=== PATIENT | male | born 1945 | race Caucasian/White ===

== ENCOUNTER 2016-05-16 10:21 | Outpatient (CLI) | payer MEDICARE | END 2016-05-16 10:22 | disposition home or self-care (01) | DX: M25.50 Pain in unspecified joint (principal); M02.30 Reiter's disease, unspecified site ==

== ENCOUNTER 2016-08-09 09:20 | Outpatient (CLI) | payer MEDICARE | END 2016-08-09 09:21 | disposition home or self-care (01) | DX: M02.30 Reiter's disease, unspecified site (principal) ==

== ENCOUNTER 2017-02-02 15:52 | Outpatient (CLI) | payer MEDICARE ==
[2017-02-02 12:52] LABS: BASOPHILS % (AUTO) 0.6 %; EOSINOPHILS # (AUTO) 0.3 10^3/uL (0.0-0.7); EOSINOPHILS % (AUTO) 5.5 %; HCT - HEMATOCRIT 42.7 % (42.0-52.0); HGB - HEMOGLOBIN 14.4 g/dL (14.0-18.0); LYMPHOCYTES # (AUTO) 1.5 10^3/uL (1.5-3.5); MEAN CORPUSCULAR HEMOGLOBIN 32.4 pg (27.0-31.0); MEAN CORPUSCULAR HGB CONC 33.6 g/dL (32.0-36.0); MEAN CORPUSCULAR VOLUME 96.6 fL (80.0-94.0); MEAN PLATELET VOLUME 7.8 fL (7.4-11.4); MONOCYTES # (AUTO) 0.5 10^3/uL (0.0-1.0); MONOCYTES % (AUTO) 10.4 %; NEUTROPHILS # (AUTO) 2.9 10^3/uL (1.5-6.6); NEUTROPHILS % (AUTO) 54.5 %; RED BLOOD COUNT 4.42 10^6/uL (4.70-6.10); RED CELL DISTRIBUTION WIDTH 13.9 % (12.0-15.0); UNCORRECTED WHITE BLOOD COUNT 5.3 x10^3/uL; WHITE BLOOD COUNT 5.3 x10^3/uL (4.8-10.8)
[2017-02-02 12:59] LABS: ALBUMIN/GLOBULIN RATIO 1.1 (1.0-2.2); BUN - BLOOD UREA NITROGEN 16 mg/dL (6-20); CARBON DIOXIDE - CO2 28 mmol/L (21-32); CHLORIDE 101 mmol/L (101-111); CHOL/HDL RATIO 3.2 (<5.0); CHOLESTEROL 237 mg/dL; CREATININE 0.7 mg/dL (0.6-1.2); GFR - MDRD 111 (>89); GLUCOSE 97 mg/dL (70-100); HDL CHOLESTEROL 73 mg/dL; POTASSIUM 4.3 mmol/L (3.5-5.0); SODIUM 136 mmol/L (135-145); TOTAL PROTEIN 7.3 g/dL (6.7-8.2); TRIGLYCERIDES 105 mg/dL; VLDL CHOLESTEROL 21 mg/dL
== END 2017-02-02 15:53 | disposition home or self-care (01) ==
LOC: LAB.WCP 15:52
PROVIDERS: ATTEND Family Medicine
DX: Z00.00 Encounter for general adult medical examination without abnormal findings (principal); R70.0 Elevated erythrocyte sedimentation rate; Z12.5 Encounter for screening for malignant neoplasm of prostate; M02.30 Reiter's disease, unspecified site
CPT/HCPCS: 36415; 80053; 80061; 84153; 85025; 85651

== ENCOUNTER 2017-02-25 16:23 | Outpatient (CLI) | payer MEDICARE ==
--- NOTE | 2017-02-26 07:09 | MRI Report ---
EXAM: MRI BRAIN AND INTERNAL AUDITORY CANAL (IAC) EXAM DATE: 02/25/2017 05:30 PM. CLINICAL HISTORY: Vertigo with right-sided hearing loss. History of right-sided ear infection. COMPARISON: None. TECHNIQUE: Multiplanar, multisequence T1-weighted and fluid-sensitive MRI sequences of the brain and IACs were performed. Other: None. IV Contrast: None FINDINGS: Parenchyma/Dura: No acute parenchymal hemorrhage, mass, or midline shift. Few scattered T2/FLAIR hype rintense periventricular and deep white matter lesions within the cerebral hemispheres bilaterally. N o areas of restricted diffusion to suggest acute infarct. No abnormal areas of magnetic susceptibilit y. Brain Volume: Normal for age. Internal Auditory Canals (IACs): Normal. No cranial nerve lesion or inflammatory process identified. There is some loss of the normal T2 hyperintense signal on the high-resolution coronal T2 sequence (s eries 901) within the lateral and posterior semicircular canals bilaterally, for example on the right series 901 image 38 and on the left series 901 image 37. The cerebellopontine angles bilaterally, th e internal auditory canals bilaterally, and the cochleas bilaterally are unremarkable. Ventricles/Cisterns: The ventricles, sulci, and cisterns are unremarkable. Ventricles and sulci appea r age appropriate. No hydrocephalus. No abnormal extra-axial fluid or hemorrhage. Orbits: Status post right lens replacement surgery. The visualized orbits are otherwise unremarkable. Sella Turcica: Unremarkable. Vasculature: Visualized major intracranial flow voids appear maintained. Dural sinuses appear patent. Sinuses: Mucous retention cyst/polyp right frontal sinus. Mucous tension cysts/polyps within the maxi llary sinuses bilaterally. Moderate mucosal thickening ethmoid air cells. Mucous retention cysts/poly ps within sphenoid sinuses. Mild fluid within mastoid tips bilaterally. Bones: Normal. Other: None. IMPRESSION: 1. Some loss of the normal T2 hyperintense signal on the high-resolution coronal T2 sequence (series 901) within the lateral and posterior semicircular canals bilaterally, for example on the right serie s 901 image 38 and on the left series 901 image 37. This is nonspecific, however can be seen with ent ity such as labyrinthine ossificans. 2. No evidence of retrocochlear pathology. The cerebellopontine angles bilaterally, the internal chantal tory canals bilaterally, and the cochleas bilaterally are unremarkable. 3. Few scattered white matter T2/FLAIR hyperintensities, nonspecific, and can be seen with the entire gamut of white matter conditions, including migraine headaches and as sequela of chronic microangiop athy. This is likely of no clinical significance unless correlated with history of hypertension/diabe flaquito. It is likely unrelated to present symptomatology. 4. No acute intracranial abnormality. [facility] Referring Provider Line: [phone] SITE ID: [id number]
== END 2017-02-25 16:24 | disposition home or self-care (01) ==
LOC: DI 16:23
PROVIDERS: ATTEND Family Medicine
DX: H91.90 Unspecified hearing loss, unspecified ear (principal); R42 Dizziness and giddiness
CPT/HCPCS: 70551

== ENCOUNTER 2018-08-24 08:00 | Outpatient (CLI) | payer MEDICARE ==
[2018-08-24 13:47] LABS: BASOPHILS # (AUTO) 0.1 10^3/uL (0.0-0.1); BASOPHILS % (AUTO) 0.8 %; EOSINOPHILS # (AUTO) 0.4 10^3/uL (0.0-0.7); EOSINOPHILS % (AUTO) 6.3 %; HGB - HEMOGLOBIN 13.6 g/dL (14.0-18.0); LYMPHOCYTES % (AUTO) 33.4 %; MEAN CORPUSCULAR HEMOGLOBIN 31.6 pg (27.0-31.0); MEAN CORPUSCULAR HGB CONC 32.8 g/dL (32.0-36.0); MEAN CORPUSCULAR VOLUME 96.3 fL (80.0-94.0); MEAN PLATELET VOLUME 7.5 fL (7.4-11.4); MONOCYTES # (AUTO) 0.6 10^3/uL (0.0-1.0); MONOCYTES % (AUTO) 10.4 %; NEUTROPHILS % (AUTO) 49.1 %; PLT - PLATELET COUNT 237 10^3/uL (130-450); RED BLOOD COUNT 4.29 10^6/uL (4.70-6.10); RED CELL DISTRIBUTION WIDTH 13.1 % (12.0-15.0); WHITE BLOOD COUNT 6.1 x10^3/uL (4.8-10.8)
[2018-08-24 14:12] LABS: ALBUMIN 3.4 g/dL (3.2-5.5); ALKALINE PHOSPHATASE 33 IU/L (42-121); ALT ALANINE AMINOTRANSFERASE 18 IU/L (10-60); AST ASPARTATE AMINOTRANSFERASE 23 IU/L (10-42); BILIRUBIN,TOTAL 0.7 mg/dL (0.2-1.0); BUN - BLOOD UREA NITROGEN 19 mg/dL (6-20); CALCIUM 9.4 mg/dL (8.5-10.3); CARBON DIOXIDE - CO2 29 mmol/L (21-32); CHLORIDE 100 mmol/L (101-111); CHOL/HDL RATIO 3.2 (<5.0); CHOLESTEROL 211 mg/dL; CREATININE 0.9 mg/dL (0.6-1.2); GFR - MDRD 82 (>89); GLUCOSE 91 mg/dL (70-100); HDL CHOLESTEROL 65 mg/dL; LDL CHOLESTEROL,CALCULATED 134 mg/dL; LDL/HDL RATIO 2.1 (<3.6); SODIUM 136 mmol/L (135-145); TOTAL PROTEIN 6.9 g/dL (6.7-8.2); VLDL CHOLESTEROL 12 mg/dL
== END 2018-08-24 23:59 | disposition home or self-care (01) ==
LOC: LAB.WCP 08:00
PROVIDERS: ATTEND Nurse Practitioner
DX: Z00.00 Encounter for general adult medical examination without abnormal findings (principal); M25.50 Pain in unspecified joint; R70.0 Elevated erythrocyte sedimentation rate; M02.30 Reiter's disease, unspecified site; Z79.899 Other long term (current) drug therapy
CPT/HCPCS: 36415; 80053; 80061; 83721; 84443; 85025

== ENCOUNTER 2019-07-02 08:45 | Outpatient (CLI) | payer MEDICARE ==
[2019-07-02 12:15] LABS: BASOPHILS # (AUTO) 0.1 10^3/uL (0.0-0.1); BASOPHILS % (AUTO) 0.8 %; EOSINOPHILS # (AUTO) 0.3 10^3/uL (0.0-0.7); EOSINOPHILS % (AUTO) 5.2 %; HGB - HEMOGLOBIN 14.7 g/dL (14.0-18.0); LYMPHOCYTES # (AUTO) 1.9 10^3/uL (1.5-3.5); LYMPHOCYTES % (AUTO) 29.5 %; MEAN CORPUSCULAR HEMOGLOBIN 31.3 pg (27.0-31.0); MEAN CORPUSCULAR VOLUME 97.7 fL (80.0-94.0); MEAN PLATELET VOLUME 9.7 fL (7.4-11.4); MONOCYTES # (AUTO) 0.8 10^3/uL (0.0-1.0); MONOCYTES % (AUTO) 11.5 %; NEUTROPHILS # (AUTO) 3.4 10^3/uL (1.5-6.6); NEUTROPHILS % (AUTO) 52.8 %; PLT - PLATELET COUNT 292 10^3/uL (130-450); RED CELL DISTRIBUTION WIDTH 12.8 % (12.0-15.0); WHITE BLOOD COUNT 6.5 x10^3/uL (4.8-10.8)
[2019-07-02 12:43] LABS: ALBUMIN 3.7 g/dL (3.2-5.5); ALKALINE PHOSPHATASE 41 IU/L (42-121); ALT ALANINE AMINOTRANSFERASE 20 IU/L (10-60); AST ASPARTATE AMINOTRANSFERASE 24 IU/L (10-42); BILIRUBIN,TOTAL 0.7 mg/dL (0.2-1.0); BUN - BLOOD UREA NITROGEN 18 mg/dL (6-20); CARBON DIOXIDE - CO2 26 mmol/L (21-32); CHLORIDE 102 mmol/L (101-111); CHOL/HDL RATIO 3.6 (<5.0); CHOLESTEROL 233 mg/dL; CREATININE 0.7 mg/dL (0.6-1.2); GFR - MDRD 110 (>89); GLUCOSE 100 mg/dL (70-100); HDL CHOLESTEROL 64 mg/dL; LDL CHOLESTEROL,CALCULATED 152 mg/dL; LDL/HDL RATIO 2.4 (<3.6); SODIUM 137 mmol/L (135-145); TOTAL PROTEIN 7.4 g/dL (6.7-8.2); VLDL CHOLESTEROL 17 mg/dL
== END 2019-07-02 23:59 | disposition home or self-care (01) ==
LOC: LAB.WCP 08:45
PROVIDERS: ATTEND Family Medicine
DX: M25.50 Pain in unspecified joint (principal); Z79.899 Other long term (current) drug therapy
CPT/HCPCS: 36415; 80053; 80061; 83721; 84443; 85025; 85651

== ENCOUNTER 2019-07-12 09:31 | Outpatient (CLI) | payer MEDICARE ==
--- NOTE | 2019-07-12 13:42 | XRAY Report ---
Reason: ASTHMATIC BRONCHITIS ACUTE Procedure Date: 07/12/2019 Accession Number: [id number] / [id number] Procedure: WCP - Chest 2 View X-Ray CPT Code: 46824 Final Report FULL RESULT: EXAM: CHEST RADIOGRAPHY EXAM DATE: 07/12/2019 09:52 AM. CLINICAL HISTORY: Asthmatic bronchitis acute. COMPARISON: CHEST 2 VIEW PA/LAT 08/12/2015 1:58 PM. TECHNIQUE: 2 views. FINDINGS: Lungs/Pleura: Mild pulmonary hyperinflation again demonstrated. Finding suspicious for a focal opacity at the lung base just posterior to the heart, without a definite correlate on the frontal view. No other focal opacities. No pleural effusion. No pneumothorax. Mediastinum: Heart and mediastinal contours are unremarkable. Other: None. IMPRESSION: Possible focal basilar pulmonary opacity, as above. Follow-up radiographs could be obtained depending upon the clinical setting and course. [facility]
== END 2019-07-12 23:59 | disposition home or self-care (01) ==
LOC: DI.WCP 09:31
PROVIDERS: ATTEND Family Medicine
DX: J45.909 Unspecified asthma, uncomplicated (principal)
CPT/HCPCS: 71046

== ENCOUNTER 2019-07-26 15:20 | Outpatient (CLI) | payer MEDICARE ==
--- NOTE | 2019-07-26 17:15 | Ultrasound Report ---
Reason: THROMBOPHLEBITIS Procedure Date: 07/26/2019 Accession Number: [id number] / [id number] Procedure: US - Duplex Ext Veins Right CPT Code: Addended Final Report FULL RESULT: EXAM: RIGHT LOWER EXTREMITY VENOUS ULTRASOUND EXAM DATE: 07/26/2019 04:42 PM. CLINICAL HISTORY: Thrombophlebitis. COMPARISON: None. TECHNIQUE: Real-time sonographic vascular imaging was performed by the nurse emergency through the lower extremity utilizing both color-flow and Doppler spectral analysis. Multiple pharmacy sales representative static images were saved for review. FINDINGS: Common Femoral Vein (CFV): Nonocclusive thrombus. Profunda Femoral Vein (PFV): Normal. Femoral Vein (FV) Prox: Nonocclusive thrombus. Femoral Vein (FV) Mid: Occlusive thrombus. Femoral Vein (FV) Dist: Occlusive thrombus. Popliteal Vein: Occlusive thrombus. Posterior Tibial Veins: Occlusive thrombus. Peroneal Veins: Occlusive thrombus. Contralateral Side CFV: Normal. Other: None. IMPRESSION: Deep vein thrombosis throughout the entire right lower extremity. [facility] The critical result notification system was initiated by Dr. Davidson King at 05:10 PM on 07/26/2019. ADDENDUM: 07/26/2019 17:34 The above critical result findings were discussed with Dr. Michele by Dr. Davidson King at 05:34 PM on 07/26/2019.
== END 2019-07-26 15:21 | disposition home or self-care (01) ==
LOC: DI 15:20
PROVIDERS: ATTEND Family Medicine
DX: I82.401 Acute embolism and thrombosis of unspecified deep veins of right lower extremity (principal)

== ENCOUNTER 2019-08-08 08:41 | Outpatient (CLI) | payer MEDICARE ==
--- NOTE | 2019-08-08 09:00 | XRAY Report ---
Reason: PULMONARY INFILTRATE Procedure Date: 08/08/2019 Accession Number: [id number] / [id number] Procedure: WCP - Chest 2 View X-Ray CPT Code: 40609 Final Report FULL RESULT: EXAM: CHEST RADIOGRAPHY EXAM DATE: 08/08/2019 08:41 AM. CLINICAL HISTORY: PULMONARY INFILTRATE. COMPARISON: CHEST 2 VIEW 07/12/2019 9:27 AM. TECHNIQUE: 2 views. FINDINGS: Lungs/Pleura: Bilateral view, improved opacity just posterior to the heart with minimal residual opacity. On the frontal view this may correspond to minimal left retrocardiac opacity, atelectasis versus infiltrate. Mediastinum: Heart and mediastinal contours are unremarkable. Other: None. IMPRESSION: Decreased minimal left basal opacity, atelectasis or infiltrate. [facility]
== END 2019-08-08 23:59 | disposition home or self-care (01) ==
LOC: DI.WCP 08:41
PROVIDERS: ATTEND Family Medicine
DX: R91.8 Other nonspecific abnormal finding of lung field (principal)
CPT/HCPCS: 71046

== ENCOUNTER 2019-10-30 07:32 | Outpatient (CLI) | payer MEDICARE ==
[2019-10-30 12:18] LABS: BASOPHILS # (AUTO) 0.1 10^3/uL (0.0-0.1); BASOPHILS % (AUTO) 1.1 %; EOSINOPHILS # (AUTO) 0.4 10^3/uL (0.0-0.7); EOSINOPHILS % (AUTO) 7.9 %; HGB - HEMOGLOBIN 13.1 g/dL (14.0-18.0); LYMPHOCYTES # (AUTO) 1.5 10^3/uL (1.5-3.5); LYMPHOCYTES % (AUTO) 26.8 %; MEAN CORPUSCULAR HEMOGLOBIN 30.9 pg (27.0-31.0); MEAN CORPUSCULAR HGB CONC 31.7 g/dL (32.0-36.0); MEAN CORPUSCULAR VOLUME 97.4 fL (80.0-94.0); MEAN PLATELET VOLUME 9.5 fL (7.4-11.4); MONOCYTES # (AUTO) 0.7 10^3/uL (0.0-1.0); MONOCYTES % (AUTO) 11.6 %; NEUTROPHILS # (AUTO) 2.9 10^3/uL (1.5-6.6); NEUTROPHILS % (AUTO) 52.4 %; PLT - PLATELET COUNT 256 10^3/uL (130-450); RED BLOOD COUNT 4.24 10^6/uL (4.70-6.10); RED CELL DISTRIBUTION WIDTH 13.2 % (12.0-15.0); WHITE BLOOD COUNT 5.6 x10^3/uL (4.8-10.8)
[2019-10-30 13:05] LABS: ALBUMIN 3.4 g/dL (3.2-5.5); ALKALINE PHOSPHATASE 42 IU/L (42-121); ALT ALANINE AMINOTRANSFERASE 20 IU/L (10-60); AST ASPARTATE AMINOTRANSFERASE 26 IU/L (10-42); BILIRUBIN,TOTAL 0.8 mg/dL (0.2-1.0); BUN - BLOOD UREA NITROGEN 21 mg/dL (6-20); CALCIUM 9.2 mg/dL (8.5-10.3); CARBON DIOXIDE - CO2 27 mmol/L (21-32); CHLORIDE 102 mmol/L (101-111); CHOL/HDL RATIO 2.6 (<5.0); CHOLESTEROL 168 mg/dL; CREATININE 0.8 mg/dL (0.6-1.2); GLUCOSE 94 mg/dL (70-100); HDL CHOLESTEROL 64 mg/dL; LDL CHOLESTEROL,CALCULATED 90 mg/dL; LDL/HDL RATIO 1.4 (<3.6); SODIUM 136 mmol/L (135-145); TOTAL PROTEIN 6.8 g/dL (6.7-8.2); VLDL CHOLESTEROL 14 mg/dL
== END 2019-10-30 23:59 | disposition home or self-care (01) ==
LOC: LAB.WCP 07:32
PROVIDERS: ATTEND Family Medicine
DX: Z79.899 Other long term (current) drug therapy (principal); E78.5 Hyperlipidemia, unspecified
CPT/HCPCS: 36415; 80053; 80061; 83721; 84443; 85025

== ENCOUNTER 2020-02-01 14:26 | Outpatient (CLI) | payer MEDICARE ==
--- NOTE | 2020-02-01 18:32 | Ultrasound Report ---
PROCEDURE: Duplex Ext Veins Right INDICATIONS: ACUTE DEEP VENOUS THROMBOSIS OF RT LEG TECHNIQUE: Real-time imaging, as well as color and pulse Doppler interrogation, were performed of the lower extr emity deep veins from the inguinal ligament to the popliteal fossa. COMPARISON: 07/26/2019 FINDINGS: Extensive right sided deep venous thrombosis is seen. There is nonocclusive thrombus seen within the mid femoral vein with an adjacent collateral vein seen. There is occlusive thrombus seen w ithin the distal femoral vein through the popliteal vein and including the posterior tibial vein and the peroneal vein. IMPRESSION: Extensive right lower extremity deep venous thrombosis can be seen. This is somewhat imp roved compared to the 07/26/2019 examination. Reviewed by: Tae Buchanan MD on 02/01/2020 5:31 PM [facility] Approved by: Tae Buchanan MD on 02/01/2020 5:31 PM [facility] Station ID: [id number]
== END 2020-02-01 14:27 | disposition home or self-care (01) ==
LOC: DI 14:26
PROVIDERS: ATTEND Family Medicine
DX: I82.411 Acute embolism and thrombosis of right femoral vein (principal); I82.431 Acute embolism and thrombosis of right popliteal vein; I82.451 Acute embolism and thrombosis of right peroneal vein; I82.441 Acute embolism and thrombosis of right tibial vein

== ENCOUNTER 2020-07-25 16:30 | Outpatient (CLI) | payer MEDICARE ==
--- NOTE | 2020-07-25 18:28 | Ultrasound Report ---
PROCEDURE: Duplex Ext Veins Right INDICATIONS: CHRONIC DVT OF RT LEG TECHNIQUE: Real-time imaging, as well as color and pulse Doppler interrogation, were performed of the lower extr emity deep veins from the inguinal ligament to the popliteal fossa. COMPARISON: Right lower extremity duplex ultrasound 02/01/2020. FINDINGS: Nonocclusive thrombus in the proximal SFV. Occlusive thrombus in the mid to distal SFV and popliteal veins. Collateral veins in the thigh. Catheter veins are patent but with slow flow. IMPRESSION: Chronic right lower extremity DVT. Collateral vein in the thigh. Persistent occlusive thrombus in the mid femoral vein to popliteal vein. Nonocclusive thrombus in the proximal femoral vein. There is resolved thrombus in the calf veins compared to January 2020. Reviewed by: Lucas Bejarano MD on 07/25/2020 5:27 PM [facility] Approved by: Lucas Bejarano MD on 07/25/2020 5:27 PM [facility] Station ID: [id number]
== END 2020-07-25 16:31 | disposition home or self-care (01) ==
LOC: DI 16:30
PROVIDERS: ATTEND Nurse Practitioner
DX: I82.511 Chronic embolism and thrombosis of right femoral vein (principal); I82.531 Chronic embolism and thrombosis of right popliteal vein

== ENCOUNTER 2020-08-12 07:00 | Outpatient (CLI) | payer MEDICARE ==
[2020-08-12 18:24] LABS: BASOPHILS # (AUTO) 0.1 10^3/uL (0.0-0.1); BASOPHILS % (AUTO) 0.7 %; EOSINOPHILS # (AUTO) 0.5 10^3/uL (0.0-0.7); HCT - HEMATOCRIT 44.4 % (42.0-52.0); HGB - HEMOGLOBIN 14.4 g/dL (14.0-18.0); LYMPHOCYTES # (AUTO) 1.7 10^3/uL (1.5-3.5); LYMPHOCYTES % (AUTO) 24.4 %; MEAN CORPUSCULAR HEMOGLOBIN 31.9 pg (27.0-31.0); MEAN CORPUSCULAR HGB CONC 32.4 g/dL (32.0-36.0); MEAN CORPUSCULAR VOLUME 98.2 fL (80.0-94.0); MEAN PLATELET VOLUME 9.2 fL (7.4-11.4); MONOCYTES # (AUTO) 0.9 10^3/uL (0.0-1.0); NEUTROPHILS # (AUTO) 3.9 10^3/uL (1.5-6.6); NEUTROPHILS % (AUTO) 54.8 %; PLT - PLATELET COUNT 299 10^3/uL (130-450); RED BLOOD COUNT 4.52 10^6/uL (4.70-6.10); WHITE BLOOD COUNT 7.1 x10^3/uL (4.8-10.8)
[2020-08-12 18:44] LABS: ALBUMIN 3.9 g/dL (3.2-5.5); ALBUMIN/GLOBULIN RATIO 1.2 (1.0-2.2); ALKALINE PHOSPHATASE 49 IU/L (42-121); ALT ALANINE AMINOTRANSFERASE 23 IU/L (10-60); AST ASPARTATE AMINOTRANSFERASE 27 IU/L (10-42); BILIRUBIN,TOTAL 0.8 mg/dL (0.2-1.0); BUN - BLOOD UREA NITROGEN 17 mg/dL (6-20); CALCIUM 9.5 mg/dL (8.5-10.3); CARBON DIOXIDE - CO2 26 mmol/L (21-32); CHLORIDE 98 mmol/L (101-111); CHOL/HDL RATIO 2.5 (<5.0); CHOLESTEROL 174 mg/dL; CREATININE 0.8 mg/dL (0.6-1.2); GFR - MDRD 94 (>89); GLUCOSE 90 mg/dL (70-100); HDL CHOLESTEROL 69 mg/dL; LDL CHOLESTEROL,CALCULATED 89 mg/dL; LDL/HDL RATIO 1.3 (<3.6); POTASSIUM 4.2 mmol/L (3.5-5.0); SODIUM 135 mmol/L (135-145); TOTAL PROTEIN 7.1 g/dL (6.7-8.2); TRIGLYCERIDES 79 mg/dL; URIC ACID 4.6 mg/dL (2.6-7.2); VLDL CHOLESTEROL 16 mg/dL
[2020-08-12 18:45] LABS: CRP - C-REACTIVE PROTEIN < 1.0 mg/dL (0-1.0)
[2020-08-12 18:50] LABS: THYROID STIMULATING HORMONE 3.78 uIU/mL (0.34-5.60)
[2020-08-12 19:07] LABS: RHEUMATOID FACTOR NEGATIVE (Negative)
[2020-08-14 11:31] LABS: ANA SCREEN NEGATIVE (NEGATIVE)
== END 2020-08-12 23:59 | disposition home or self-care (01) ==
LOC: LAB.WCP 07:00
PROVIDERS: ATTEND Family Medicine
DX: E78.5 Hyperlipidemia, unspecified (principal); I82.501 Chronic embolism and thrombosis of unspecified deep veins of right lower extremity
CPT/HCPCS: 36415; 80053; 80061; 83721; 84443; 84550; 85025; 85651; 86038; 86140; 86430

== ENCOUNTER 2021-03-22 08:13 | Day surgery (SDC) | payer MEDICARE ==
[2021-03-22 09:05] VITALS: BP 125/98
== END 2021-03-22 08:14 | disposition home or self-care (01) ==
LOC: SDS 08:13
PROVIDERS: ATTEND Surgery
DX: K40.90 Unilateral inguinal hernia, without obstruction or gangrene, not specified as recurrent (principal); I48.91 Unspecified atrial fibrillation; Z53.09 Procedure and treatment not carried out because of other contraindication
CPT/HCPCS: 93005; 93306

== ENCOUNTER 2021-04-22 12:18 | Outpatient (CLI) | payer MEDICARE ==
[2021-04-22] MEDS ORDERED: REGADENOSON 0.4 MG/5 ML SYRINGE IVP ONE (13:38)
--- NOTE | 2021-04-22 14:40 | CARDIAC PROCEDURE NOTE ---
Stress Test Report Service Date: 04/22/21 Service Time: 12:30 Ordering Provider: Megan Horowitz ARNP Indication for Test: Risk stratification for occult CAD in patient who is pre-op for hernia surgery, recently discovered to have asymptomatic atrial fibrillation of unkown duration. Significant Medical History: Juan was diagnosed with an inguinal hernia about 1 year ago, which was initially only minimally symptomatic but in recent months has become more problematic to him. As part of an evaluation for potential preoperative planning he was found to have atrial fibrillation by EKG. Diagnostic echocardiogram performed at [facility] on 03/22/2021 was notable for normal right and left ventricular size and systolic function, with mild mitral regurgitation and moderate biatrial dilation. He was initiated on anticoagulation with Xarelto. To further risk stratify him for herniorrhaphy in this setting he is referred for an ischemia evaluation with stress myocardial perfusion imaging. We discussed the options of chemical stress with regadenason versus treadmill stress and since there does not appear to be a contraindication to proceeding with exercise this stress modality was chosen. Juan reports that he remains unaware of any cardiovascular symptoms and his exertional tolerance remains intact; he walks avidly, up and down hills and periodically fells trees on his property and chops them to firewood, without limitation. Cardiac Risk Factors: Positive for hyperlipidemia (not currently treated) and probable ASCVD in a brother; no known history of diabetes, hypertension and only a remote (>40 yrs ago) and brief smoking history. Type of Stress Test: ETT with Myocardial Perfusion Imaging Procedure: -Exercise Treadmill Test- After signing informed consent, the patient underwent resting 99Tc-Myoview SPECT imaging and then performed treadmill exercise using a Phil protocol. The patient exercised for 6 minutes 45 seconds and achieved a peak heart rate of 190 (132 percent predicted maximum heart rate for age), and an estimated workload of 8.2 METS. The test was terminated due to fatigue/shortness of breath after achieving target heart rate. Resting heart rate: 65 Peak heart rate: 190 Abnormal, accelerated HR increase with exercise, likely due to atrial fibrillation in the absence of AV nadine blocking agent. Resting BP: 120/86 Peak BP: 183/84 Normal resting BP and response to exercise. Rhythm during exercise: Atrial fibrillation throughout, with occasional isolated PVCs and brief, rare episodes of bigeminy. Symptoms: No specific symptoms described. EKG at rest showed atrial fibrillation with borderline prolonged QTc (476 ms); no QRS/ST/T morphologic abnormalities. EKG at peak stress showed J-point depression with upsloping ST segments, NOT meeting diagnostic criteria for ischemia. In Recovery heart rate rapidly returned to baseline, with slower decrease in BPs. Nuclear imaging was performed at rest and with stress and will be reported separately. Dannie Thompson MD, was present throughout this treadmill stress study and supervised it in its entirety. Summary: 1) Slightly above average exercise tolerance as evidenced by LEXIE of -12%. 2) Abnormal resting EKG. 3) Adequate level of exercise was achieved on this treadmill stress test. 4) Normal BP response to exercise. Accelerated heart rate increase with exercise, in setting of no AV nadine blockade. 5) No ischemic changes by EKG criteria were seen at peak stress. 6) Analysis of gated nuclear images reveals normal left ventricular size and systolic function; SPECT analysis reveals normal perfusion of the left ventricle at rest and in prone images obtained following treadmill stress, thus no clear evidence of prior infarct or inducible ischemia. See separate report for more detail. CONCLUSIONS: 1) Low risk treadmill stress myocardial perfusion imaging study, without symptoms, EKG or SPECT evidence of inducible ischemia. 2) Patient's atrial fibrillation is appropriately treated with a DOAC (Xarelto) but due to rapid and exaggerated HR increase with exercise, initiation of AV nadine blocking agent (beta or calcium channel jonathan) is recommended for improved rate control.
--- NOTE | 2021-04-22 17:11 | Nuclear Medicine Report ---
PROCEDURE: Rest and pharmacological stress myocardial perfusion SPECT with gated imaging and ejection fraction INDICATIONS: AFIB /LEXISCAN RADIOPHARMACEUTICAL: 13.0 mCi Tc-99m Myoview IV at rest and 36.0 mCi Tc-99m Myoview IV at peak stres s. [id number] was performed. TECHNIQUE: Radiopharmaceutical was injected at peak stress test, and also at rest. SPECT images wer e obtained. SPECT myocardial perfusion images were displayed in short axis, horizontal long axis, an d vertical long axis views. Gated images were reviewed using AutoQUANT software. COMPARISON: None available. FINDINGS: Raw data: There is good myocardial labeling by radiotracer. No significant motion artifacts. Lung- to-heart ratio is 0.35 (normal is less than 0.46 for tetrafosmin tracer). Left ventricle function: Gated images demonstrate normal left ventricle wall thickening. No segment al wall motion abnormality. No transient ischemic dilation; TID is 0.95 (normal less than 1.30). Th e left ventricle resting end-diastolic volume is 87 mL. Left ventricle stress ejection fraction is 6 4%; normal values are above 45%. Myocardial perfusion: There is a large, moderately severe, fixed perfusion defect in the inferior la teral wall and apex, which is largely resolved on prone imaging, most likely caused by attenuation ar tifact. There is no reversible perfusion defect to suggest myocardial ischemia. IMPRESSION: 1. Probably normal myocardial perfusion images. There is a large, moderately severe, fixed perfusion defect in the inferior lateral wall and apex, which is largely resolved on prone imaging, suggesting attenuation artifact. 2. There is no reversible perfusion defect to suggest myocardial ischemia.. 3. Normal left ventricular volume and systolic function. 4. Please correlate with stress EKG result. PQRS ATTESTATIONS: Measure 322 - Is this imaging test primarily performed on a low-risk surgery patient for preoperative evaluation within 30 days preceding their low-risk non-cardiac surgery? Low-risk surgery is defined as cardiac or myocardial infarction less than 1%, including (but not limited to) endoscopic pr ocedures, superficial procedures, cataract surgery, and excisional breast surgery: Answer: No Measure 323 - Is this imaging test performed primarily for the monitoring of an asymptomatic patient who had percutaneous coronary intervention on the visit date or within 2 years of the visit date? An swer: No Measure 324 - Is this imaging test performed primarily for the initial detection and risk assessment on an asymptomatic, low coronary heart disease patient? Low CHD risk definition = clinicians should consider the maximum number of available patient factors used to estimate risk based on [place] (A TP III criteria), typically age, gender, diabetes, smoking status, and use of blood pressure medicati on, and integrate age appropriate estimates for missing elements, such as LDL or standard blood press ure. Answer: No Reviewed by: Bailee Miramontes MD on 04/22/2021 5:09 PM PST Approved by: Bailee Miramontes MD on 04/22/2021 5:09 PM PST Station ID: [id number]
== END 2021-04-22 12:19 | disposition home or self-care (01) ==
LOC: DI 12:18
PROVIDERS: ATTEND Nurse Practitioner
DX: I48.0 Paroxysmal atrial fibrillation (principal); E78.5 Hyperlipidemia, unspecified; Z87.891 Personal history of nicotine dependence
CPT/HCPCS: 78452; 93016; 93017; 93018; A9500

== ENCOUNTER 2021-08-06 06:24 | Day surgery (SDC) | payer MEDICARE ==
[2021-08-06] MEDS ORDERED: LACTATED RINGERS 1,000 ML IV ONE (06:33)
[2021-08-06] MEDS ORDERED: CEFAZOLIN SODIUM IN 0.9 % NACL 2 GM/50 ML BAG IV ONE (06:38)
--- NOTE | 2021-08-06 07:08 | ANESTHESIA ---
Pre-Anesthesia VS, & Labs - Diagnosis left inguinal hernia repair - Procedure left inguinal hernia repair with mesh Vital Signs: Temp Pulse Resp BP Pulse Ox 36.7 C 52 L 15 138/88 H 98 08/06/21 06:44 08/06/21 06:44 08/06/21 06:44 08/06/21 06:44 08/06/21 06:44 Height: 5 ft 8 in Weight (kg): 78 kg Body Mass Index: 26.1 BMI Classification: Overweight - NPO >8 hours Home Medications and Allergies Home Medications: Ambulatory Orders Rivaroxaban [Xarelto] 20 mg PO DAILY 07/27/21 Rivaroxaban [Xarelto] 20 mg PO DAILY 07/27/21 Allergies/Adverse Reactions: Allergies Allergy/AdvReac Type Severity Reaction Status Date / Time sulindac [From Clinoril] Allergy Severe Hives Verified 12/03/13 12:40 cyclobenzaprine HCl * AdvReac Hallucinati Verified 03/10/21 15:33 [From Flexeril] ons Anes History & Medical History - Anesthetic History Anesthesia Complications: reports: No previous complications - Medical History Cardiovascular: reports: Deep vein thrombosis, Atrial fibrillation Pulmonary: reports: None Gastrointestinal: reports: None Urinary: reports: None Neuro: reports: None Musculoskeletal: reports: Osteoarthritis, Other (polyarthritis, riter syndrome) Endocrine/Autoimmune: reports: None Blood Disorders: reports: None Skin: reports: None Smoking Status: Former smoker (Quit 40 years ago.) Psychosocial: reports: No issues indicated History of Cancer?: No - Surgical History General: reports: Other (IHR) Eyes Ears Nose Throat (EENT): reports: Cataracts, Tonsil/Adenoidectomy Exam General: Alert, Oriented x3, Cooperative, No acute distress Dental: Poor dentition (chipped and missing) Mouth Openin Fingerbreadth Neck Mobility: Normal Mallampati classification: II Thyromental Distance: 4-6 cm Respiratory: Lungs clear, Normal breath sounds, No respiratory distress, No accessory muscle use Cardiovascular: Other (afib) Mental/Cognitive Status: Alert/Oriented X3, Normal for patient Plan Anesthesia Type: General Consent for Procedure(s) Verified and Reviewed: Yes Code Status: Attempt Resuscitation ASA classification: 3-Severe systemic disease Is this case an emergency?: No
[2021-08-06] MEDS ORDERED: LIDOCAINE-MPF 2% 5 ML VIAL ONE (07:33)
[2021-08-06] MEDS ORDERED: PROPOFOL 200 MG/20 ML VIAL IVP ONE (07:33)
[2021-08-06] MEDS ORDERED: fentaNYL 100 MCG/2 ML VIAL ONE (07:33)
[2021-08-06] MEDS ORDERED: BUPIVACAINE 0.25% PF 10 ML VIAL ONE ×2 (07:35→07:36)
[2021-08-06] MEDS ORDERED: LIDOCAINE 2%-EPI 1:100000 20 ML MDV ONE (07:36)
[2021-08-06] MEDS ORDERED: DEXAMETHASONE 4 MG/ML VIAL ONE (08:28)
[2021-08-06] MEDS ORDERED: ePHEDrine 50 MG/ML VIAL IVP ONE (08:28)
[2021-08-06] MEDS ORDERED: ONDANSETRON 4 MG/2 ML VIAL ONE (08:28)
[2021-08-06] MEDS ORDERED: BUPIVACAINE 0.25% PF 10 ML VIAL SUBQ ONE (08:33)
[2021-08-06] MEDS ORDERED: ONDANSETRON 4 MG/2 ML VIAL IVP PRN (09:20)
[2021-08-06] MEDS ORDERED: HYDROmorphone 0.5 MG/0.5 ML SYRINGE IVP PRN (09:20)
[2021-08-06] MEDS ORDERED: fentaNYL 100 MCG/2 ML VIAL IVP PRN (09:20)
[2021-08-06] MEDS ORDERED: ATROPINE ABBOJECT 1 MG/10 ML SYRINGE IVP PRN (09:20)
[2021-08-06] MEDS ORDERED: NALOXONE 0.4 MG/ML VIAL IVP PRN (09:20)
[2021-08-06] MEDS ORDERED: MORPHINE 2 MG/ML CARPUJECT IVP PRN (09:20)
[2021-08-06] MEDS ORDERED: LACTATED RINGERS 900 ML IV ONE (09:37)
--- NOTE | 2021-08-06 09:52 | OPERATIVE REPORT ---
Operative Report - General Procedure Date: 08/06/21 Planned Procedure: Left inguinal herniorrhaphy Pre-Op Diagnosis: Left inguinal hernia Procedure Performed: Left direct inguinal herniorrhaphy with mesh and excision cord lipoma Post Op Diagnosis: Left direct inguinal hernia and cord lipoma - Procedure Note Primary Surgeon: Keanu Grimm MD Anesthesia Provider: Winsome Maldonado CRNA Anesthesia Technique: General LMA, Local (20 mL 0.25% Marcaine) IV Fluids (mL): 1,100 Estimated Blood Loss (mL): 5 Drain/Tube Type: Other (None.) Indications: As above. Findings: Large direct inguinal hernia. Complications: None. - Other Other Information/Narrative: After verbal and written informed consent was obtained detailing the operation, the alternatives the operation including no operation, risks of infection, bleeding requiring transfusion with its risks, nerve injury, and and after I met with the patient confirming the surgery and the site of surgery, the patient was brought to the operative suite and placed supine on the operating table. Great care was taken to avoid pressure points to prevent pressure necrosis or nerve injury. Monitoring devices were applied along with TEDs and pneumatic compression stockings (to prevent DVT). The patient received preoperative antibiotics for surgical prophylaxis. Winsome Maldonado CRNA sedated and anesthetized the patient for the entire procedure. The patient was prepped and draped in the usual sterile manner. With the patient draped my initials were clearly visible. A "time in" then confirmed that the patient was identified with 3 identifiers (name, date, and medical record number), the history and physical was updated and in the chart, the signed consent confirming the procedure was in the chart, the patient was in the correct position, the aforementioned prophylactic measures were in place or given, we had the correct personnel and equipment to complete the procedure and that anesthesia and the surgical team were given an opportunity to express any concerns. With the agreement of everyone in the room we proceeded with the operation. After the inguinal area was injected with half percent Marcaine, anesthetizing the area, a standard inguinal incision was made and dissection was carried down to the external oblique aponeurosis using a combination of Metzenbaum scissors and Bovie electrocautery. The external oblique aponeurosis was cleared of overlying adherent tissue, and the external ring was delineated. The external oblique was incised with a scalpel and this incision was carried down to the external ring using Metzenbaum scissors. Care was taken not to injure the ilioinguinal nerve. Having expose the inguinal canal, the cord structures were from the canal using blunt dissection and a Quinn drain was placed around the cord structures at the level of the pubic tubercle. This [place] drain was then used to retract the cord structures as needed. Adherent cremasteric muscle was dissected free from the cord using Bovie electrocautery. The cord was then explored using a combination of sharp and blunt dissection, and no sac was found. Dissection along the cord structures found a lipoma that was dissected back to the internal ring, and transected, and the stump cauterized. The hernia was found coming from the floor the inguinal canal medial to the inferior epigastric vessels. This was dissected back to the hernia opening. The hernia was inverted back into the abdominal cavity and a PerFix plug inserted into the hernia defect. The plug was secured to the edge of the hernia defect using interrupted 2-0 PDS sutures. This permitted the floor of the inguinal canal to be repaired without the hernia in my way. The Pe rFix onlay patch was then secured to the pubic tubercle with 2 0-PDS U stitches. The superior stitch was then run attaching the mesh to the conjoined tendon whereas the inferior stitch was run attaching the mesh to the shelving edge of Poupart's ligament. The mesh was secured around the cord structures loosely thus creating a new internal ring. The [place] drain was then removed. The wound was irrigated using sterile saline, and hemostasis was obtained using Bovie electrocautery. The incision the external oblique was approximated using 3-0 Vicryl in a running fashion thus reforming the external ring. The skin incision was approximated with 4-0 Monocryl in a subcuticular fashion. The skin was cleaned of its prep and Dermabond was applied. At this point a timeout was performed that confirmed that all counts were correct x2, the procedure that was performed, the blood loss, the IV fluids administered, the patient's condition, and any concerns of the operating team had. Having ángel erated the procedure well, the patient was taken recovery room in good and stable condition. Gentle downward traction ensured the testes were well seated in the scrotum. The plan is for outpatient discharge when the patient is adequately recovered. This document was created in part using voice recognition technology. Because of the inherent limitations of the system, occasional same sounding word substitutions and grammatical errors do occur and persist despite proofreading. Please read this document for content.
[2021-08-06] MEDS ORDERED: LACTATED RINGERS 1,000 ML IV SCH (10:00)
[2021-08-06] MEDS ORDERED: HYDROcod/ACETAM 5/325 MG TABLET PO PRN (10:48)
[2021-08-06 10:56] VITALS: BP 138/97
--- NOTE | 2021-08-06 11:03 | ANESTHESIA POST OP EVALUATION ---
Anesthesia Post Eval - Post Anesthesia Eval Vitals: Last Vital Signs Temp 36.5 C 08/06/21 10:54 Pulse 69 08/06/21 10:54 Resp 16 08/06/21 10:54 BP 138/97 H 08/06/21 10:54 Pulse Ox 100 08/06/21 10:54 CV Function Including HR & BP: Stable Pain Control: Satisfactory Nausea & Vomiting: Negative Mental Status: Baseline Respiratory Status: Airway Patent Hydration Status: Satisfactory Anesthesia Complications: None
== END 2021-08-06 06:25 | disposition home or self-care (01) ==
LOC: SDS 06:24
PROVIDERS: ATTEND Surgery
DX: K40.90 Unilateral inguinal hernia, without obstruction or gangrene, not specified as recurrent (principal); D17.6 Benign lipomatous neoplasm of spermatic cord; J45.909 Unspecified asthma, uncomplicated; G47.30 Sleep apnea, unspecified; I48.91 Unspecified atrial fibrillation; Z79.01 Long term (current) use of anticoagulants; Z79.82 Long term (current) use of aspirin; Z87.891 Personal history of nicotine dependence
CPT/HCPCS: 49505; 55520; A9270; C1781; J0690; J7120

== ENCOUNTER 2021-12-06 08:00 | Outpatient (CLI) | payer MEDICARE ==
--- NOTE | 2021-12-06 15:02 | XRAY Report ---
PROCEDURE: Elbow 3 View LT INDICATIONS: ELBOW PX TECHNIQUE: 3 views of the elbow were acquired. COMPARISON: None FINDINGS: Bones: The olecranon is obscured by overlying ossification. No suspicious bony lesions. Soft tissues: No elbow joint effusion. Large area of ossification at the posterior aspect of the ole cranon is present measuring roughly 43 mm. There is a rounded soft tissue mass at the posterior aspec t of the olecranon measuring roughly 60 mm. IMPRESSION: Large region of ossification and soft tissue mass overlying the olecranon. Findings may represent ole cranon bursitis with associated dystrophic calcification. MRI is recommended for further assessment, and to exclude less likely, more aggressive etiologies. Reviewed by: Cheryl Vicente MD on 12/06/2021 3:00 PM PDT Approved by: Cheryl Vicente MD on 12/06/2021 3:00 PM PDT Station ID: [id number]
== END 2021-12-06 23:59 | disposition home or self-care (01) ==
LOC: DI.WOS 08:00
PROVIDERS: ATTEND Orthopaedic Surgery
DX: R22.32 Localized swelling, mass and lump, left upper limb (principal); M25.522 Pain in left elbow

== ENCOUNTER 2022-12-28 08:18 | Outpatient (CLI) | payer MEDICARE ==
[2022-12-28 12:34] LABS: BASOPHILS # (AUTO) 0.1 10^3/uL (0.0-0.1); BASOPHILS % (AUTO) 0.9 %; EOSINOPHILS # (AUTO) 0.3 10^3/uL (0.0-0.7); EOSINOPHILS % (AUTO) 5.7 %; HCT - HEMATOCRIT 41.4 % (42.0-52.0); HGB - HEMOGLOBIN 13.4 g/dL (14.0-18.0); LYMPHOCYTES # (AUTO) 1.6 10^3/uL (1.5-3.5); LYMPHOCYTES % (AUTO) 28.4 %; MEAN CORPUSCULAR HEMOGLOBIN 31.6 pg (27.0-31.0); MEAN CORPUSCULAR HGB CONC 32.4 g/dL (32.0-36.0); MEAN CORPUSCULAR VOLUME 97.6 fL (80.0-94.0); MEAN PLATELET VOLUME 9.3 fL (7.4-11.4); MONOCYTES # (AUTO) 0.8 10^3/uL (0.0-1.0); MONOCYTES % (AUTO) 13.4 %; NEUTROPHILS # (AUTO) 2.9 10^3/uL (1.5-6.6); NEUTROPHILS % (AUTO) 51.4 %; PLT - PLATELET COUNT 246 10^3/uL (130-450); RED BLOOD COUNT 4.24 10^6/uL (4.70-6.10); RED CELL DISTRIBUTION WIDTH 13.1 % (12.0-15.0); WHITE BLOOD COUNT 5.6 x10^3/uL (4.8-10.8)
[2022-12-28 12:58] LABS: ALBUMIN 3.8 g/dL (3.2-5.5); ALBUMIN/GLOBULIN RATIO 1.3 (1.0-2.2); ALKALINE PHOSPHATASE 45 IU/L (42-121); ALT ALANINE AMINOTRANSFERASE 14 IU/L (10-60); AST ASPARTATE AMINOTRANSFERASE 21 IU/L (10-42); BILIRUBIN,TOTAL 0.7 mg/dL (0.2-1.0); BUN - BLOOD UREA NITROGEN 14 mg/dL (6-20); CALCIUM 8.9 mg/dL (8.5-10.3); CARBON DIOXIDE - CO2 29 mmol/L (21-32); CHLORIDE 103 mmol/L (101-111); CHOL/HDL RATIO 2.8 (<5.0); CHOLESTEROL 189 mg/dL; CREATININE 0.8 mg/dL (0.6-1.3); GFR - MDRD 93 (>89); GLUCOSE 87 mg/dL (74-104); HDL CHOLESTEROL 68 mg/dL; LDL CHOLESTEROL,CALCULATED 106 mg/dL; LDL/HDL RATIO 1.6 (<3.6); POTASSIUM 4.1 mmol/L (3.5-4.5); SODIUM 136 mmol/L (135-145); TOTAL PROTEIN 6.7 g/dL (6.4-8.9); TRIGLYCERIDES 73 mg/dL (48-352); VLDL CHOLESTEROL 15 mg/dL
[2022-12-28 13:04] LABS: THYROID STIMULATING HORMONE 2.87 uIU/mL (0.34-5.60)
== END 2022-12-28 08:19 | disposition home or self-care (01) ==
LOC: LAB.N 08:18
PROVIDERS: ATTEND Family Medicine
DX: I48.91 Unspecified atrial fibrillation (principal); E78.5 Hyperlipidemia, unspecified; M70.22 Olecranon bursitis, left elbow
CPT/HCPCS: 36415; 80053; 80061; 83721; 84443; 85025

== ENCOUNTER 2023-02-16 11:07 | Outpatient (CLI) | payer MEDICARE ==
[2023-02-16 11:38] LABS: CRP - C-REACTIVE PROTEIN 1.8 mg/dL (<0.5); URIC ACID 5.1 mg/dL (4.4-7.6)
[2023-02-16 15:28] LABS: RHEUMATOID FACTOR NEGATIVE (Negative)
--- NOTE | 2023-02-16 17:09 | XRAY Report ---
PROCEDURE: Wrist 2 View BILAT INDICATIONS: PAIN IN WRISTS UNSPECIFIED TECHNIQUE: 2 views of the right and left wrist were acquired. COMPARISON: None. FINDINGS: Bones: No acute fracture or dislocation identified. Deformity of the right distal ulna and radioulna r joint may be remote posttraumatic or degenerative. Mild degenerative changes at the STT and first C MC joints bilaterally. Soft tissues: No suspicious soft tissue calcifications. IMPRESSION: No acute bony abnormality. If there is anatomic snuff box tenderness, consider wrist immobilization a nd repeat radiographs in 10-14 days or cross-sectional imaging now. If pain persists with conservativ e management, consider repeat radiographs in 10-14 days or cross-sectional imaging. Reviewed by: Dillon Johnson MD on 02/16/2023 5:08 PM PDT Approved by: Dillon Johnson MD on 02/16/2023 5:08 PM PDT Station ID: [id number]
[2023-02-17 19:07] LABS: CYCLIC CITRULLINATED PEP IGG/A 1 units (0-19)
[2023-02-19 17:08] LABS: ANTINUCLEAR ANTIBODIES IFA Negative (.)
== END 2023-02-16 11:08 | disposition home or self-care (01) ==
LOC: DI 11:07
PROVIDERS: ATTEND Internal Medicine Rheumatology
DX: M18.0 Bilateral primary osteoarthritis of first carpometacarpal joints (principal); M19.031 Primary osteoarthritis, right wrist; M19.032 Primary osteoarthritis, left wrist; M25.50 Pain in unspecified joint
CPT/HCPCS: 36415; 84550; 85651; 86038; 86140; 86200; 86430

== ENCOUNTER 2024-01-22 13:35 | Outpatient (CLI) | payer MEDICARE ==
[2024-01-22 13:51] LABS: BASOPHILS % (AUTO) 0.6 %; EOSINOPHILS # (AUTO) 0.3 10^3/uL (0.0-0.7); EOSINOPHILS % (AUTO) 4.2 %; HCT - HEMATOCRIT 42.9 % (42.0-52.0); HGB - HEMOGLOBIN 13.9 g/dL (14.0-18.0); LYMPHOCYTES # (AUTO) 1.8 10^3/uL (1.5-3.5); LYMPHOCYTES % (AUTO) 25.5 %; MEAN CORPUSCULAR HEMOGLOBIN 31.8 pg (27.0-31.0); MEAN CORPUSCULAR HGB CONC 32.4 g/dL (32.0-36.0); MEAN CORPUSCULAR VOLUME 98.2 fL (80.0-94.0); MEAN PLATELET VOLUME 8.9 fL (7.4-11.4); MONOCYTES # (AUTO) 0.8 10^3/uL (0.0-1.0); MONOCYTES % (AUTO) 11.4 %; NEUTROPHILS # (AUTO) 4.1 10^3/uL (1.5-6.6); PLT - PLATELET COUNT 239 10^3/uL (130-450); RED BLOOD COUNT 4.37 10^6/uL (4.70-6.10); RED CELL DISTRIBUTION WIDTH 12.9 % (12.0-15.0); WHITE BLOOD COUNT 7.1 x10^3/uL (4.8-10.8)
[2024-01-22 14:01] LABS: ALBUMIN/GLOBULIN RATIO 1.3 (1.0-2.2); ALKALINE PHOSPHATASE 41 IU/L (42-121); ALT ALANINE AMINOTRANSFERASE 15 IU/L (10-60); AST ASPARTATE AMINOTRANSFERASE 21 IU/L (10-42); BILIRUBIN,TOTAL 0.8 mg/dL (0.2-1.0); BUN - BLOOD UREA NITROGEN 19 mg/dL (6-20); CALCIUM 9.5 mg/dL (8.5-10.3); CARBON DIOXIDE - CO2 28 mmol/L (21-32); CHLORIDE 101 mmol/L (101-111); CHOL/HDL RATIO 3.2 (<5.0); CHOLESTEROL 222 mg/dL; CREATININE 0.8 mg/dL (0.6-1.3); GFR - MDRD 93 (>89); GLUCOSE 86 mg/dL (74-104); HDL CHOLESTEROL 69 mg/dL; LDL CHOLESTEROL,CALCULATED 123 mg/dL; LDL/HDL RATIO 1.8 (<3.6); POTASSIUM 4.1 mmol/L (3.5-4.5); SODIUM 135 mmol/L (135-145); TOTAL PROTEIN 7.2 g/dL (6.4-8.9); TRIGLYCERIDES 150 mg/dL; VLDL CHOLESTEROL 30 mg/dL
[2024-01-22 14:15] LABS: THYROID STIMULATING HORMONE 3.17 uIU/mL (0.34-5.60)
== END 2024-01-22 13:36 | disposition home or self-care (01) ==
LOC: LAB 13:35
PROVIDERS: ATTEND Family Medicine
DX: H91.90 Unspecified hearing loss, unspecified ear (principal); I48.91 Unspecified atrial fibrillation; E78.5 Hyperlipidemia, unspecified; I82.501 Chronic embolism and thrombosis of unspecified deep veins of right lower extremity; G47.9 Sleep disorder, unspecified; R53.83 Other fatigue; Z12.5 Encounter for screening for malignant neoplasm of prostate
CPT/HCPCS: 36415; 80053; 80061; 84443; 85025; G0103; 83721; 84153